=== PATIENT | male | born 1985 | race Caucasian/White ===

== ENCOUNTER 2017-02-06 13:46 | Emergency (ER) | payer SELFPAY ==
[~2017-02-06] VITALS: Ht 172.7 cm; Wt 100.3 kg
[2017-02-06 13:54] VITALS: BP 152/102
[2017-02-06] MEDS ORDERED: SODIUM CHLORIDE FLUSH 10ML SYR IVF ONE (14:30)
[2017-02-06] MEDS ORDERED: SODIUM CHLORIDE 0.9% 1,000ML IVBOLUS ONE (14:30)
[2017-02-06] MEDS ORDERED: ONDANSETRON 2MG/ML, 2ML IVPush ONE (14:30)
[2017-02-06 14:49] LABS: HEMOGLOBIN 18.3 g/dL (13.7-18.0)
[2017-02-06 15:01] LABS: BLOOD UREA NITROGEN 10 mg/dL (7-18)
[2017-02-06 15:08] LABS: ASPARTATE AMINO TRANSFERASE 36 U/L (15-37)
[2017-02-06 15:11] LABS: IS PT STATUS REG ER OR PRE ER? YES
== END 2017-02-06 16:23 | disposition left against medical advice (07) ==
LOC: ED 16:17
DX: R07.89 Other chest pain (principal)
CPT/HCPCS: 36415; 71010; 80053; 80307; 84484; 85025; 93005; 99281